=== PATIENT | female | born 1990 | race Caucasian/White ===

== ENCOUNTER 2021-09-08 08:50 | Emergency (ER) | payer SELFPAY ==
--- NOTE | 2021-09-08 09:50 | EDM.PDOC ---
ED HPI GENERAL MEDICAL PROBLEM - General Chief Complaint: General Stated Complaint: FELL ON TAIL BONE Time Seen by Provider: 09/08/21 09:37 Source of Information: Reports: Patient History Limitations: Reports: No Limitations - History of Present Illness INITIAL COMMENTS - FREE TEXT/NARRATIVE: HISTORY AND PHYSICAL: History of present illness: Patient is a 31-year-old female who presents to the emergency room with complaints of tailbone pain after a fall. She states over the weekend she was standing on a metal chair when it slipped out from under her and she landed directly on her tailbone. She states she is increasingly sore, having pain with bowel movements and difficulty when sitting in a chair. She denies hitting her head or having any loss of consciousness. She denies any other extremity involvement. Patient denies any fever, chills, headache, change in vision, syncope or near syncope. Denies any chest pain, shortness of breath or cough. Denies any abdominal pain, nausea, vomiting, diarrhea, constipation or dysuria. Has not noted any blood in urine or stool. Denies any urinary or fecal incontinence. Patient has been eating and drinking appropriately. No recent travel or sick contacts. Review of systems: As per history of present illness and below otherwise all systems reviewed and negative. Past medical history: As per history of present illness and as reviewed below otherwise noncontributory. Surgical history: As per history of present illness and as reviewed below otherwise noncontributory. Social history: See social history for further information Family history: As per history of present illness and as reviewed below otherwise noncontributory. Physical exam: General: Well developed and well nourished. Alert and orientated x 3. Nontoxic in appearance and in no acute distress. Vital signs are stable and have been reviewed by me. Nursing notes were reviewed. HEENT: Atraumatic, normocephalic, pupils equal and reactive bilaterally, negative for conjunctival pallor or scleral icterus, mucous membranes moist, TMs normal bilaterally, throat clear, neck supple, nontender, trachea midline. No drooling or trismus noted. No meningeal signs. No hot potato voice noted. Lungs: Clear to auscultation bilaterally. No wheezes, rales, or rhonchi. Chest nontender. Normal work of breathing, no accessory muscles used. Heart: S1S2, regular rate and rhythm without overt murmur, gallops, or rubs. No JVD. No peripheral edema Abdomen: Soft, nondistended, nontender. Normoactive bowel sounds. Negative for masses or costovertebral tenderness. Pelvis: Stable nontender. Skin: Yellow bruise to the left inner glutes near the tailbone. Remaining skin is intact, warm, dry. No lesions or rashes noted. C-spine/Back: No pinpoint vertebral tenderness upon palpation. No crepitus, step-offs or obvious deformities. Generalized tailbone pain into the glutes bilaterally. Patient is ambulatory into the emergency room without difficulty or deficit. Able to rock back on heels and walk on toes. Denies any urinary or fecal incontinence. Denies any numbness, tingling or saddle paresthesia. No concerns of serious infection, fracture or cord compression, or cauda equina syndrome. Deep tendon reflexes brisk bilaterally. Hematologic: No petechiae or purpra. Mucosa appropriate color and normal nail bed color and refill. Extremities: Moves all extremities per self without difficulty or deficits, negative for cords or calf pain. Neurovascular unremarkable. Neuro: Awake, alert, oriented. Cranial nerves II through XII unremarkable. Cerebellum unremarkable. Motor and sensory unremarkable throughout. Exam nonfocal. Psychiatric: Mood and affect are appropriate. Normal thought process. Answering questions appropriately. Please note that the patient was seen and evaluated during the 2019 SARS-CoV-2 novel coronavirus pandemic period. Community viral transmission is ongoing at time of this encounter and the emergency department is operating under pandemic response procedures. Medical Decision Making: Patient is a 31-year-old female who presents to the emergency room with complaints of tailbone pain after a fall over the weekend. She states it is becoming increasingly uncomfortable and she would like an x-ray. She declines wanting having a urine test, no concern. She does appear uncomfortable and prefers to stand, will give her p.o. 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 X-ray shows no acute osseous abnormality or displaced fracture is appreciated. She did get some relief with the medication. I have talked with the patient about today's findings, in addition to providing specific details for plan of care. Reassessment at the time of disposition demonstrates that the patient is in no acute distress. The patient is stable for discharge, counseling was provided and we discussed in great detail signs and symptoms that would prompt them to return to the Emergency Department. Medication, follow up and supportive care measures were reviewed and discussed. Voices understanding and is agreeable to plan of care. Denies any further questions or concerns at this time. Diagnostics: Sacrum x-ray Therapeutics: Torrance, Anaidfran Prescription: Torrance (#20), Zofran (#[id number]) Impression: Coccyx injury Plan: 1. You were evaluated today on an emergent basis. Your x-ray shows no fracture. You may have pain over the next 1 week as you are healing. Sit on soft surfaces or even a "doughnut" seat. May want to use Colace to soften your stools to prevent straining. 2. You can alternate Tylenol and ibuprofen as needed for pain and fever management. Torrance 03/01/2025, may use 1-2 tabs every 4 hours as needed for moderate to severe pain. This medication may cause drowsiness so do not take it while driving or needing to be functioning outside of the house. Zofran for nausea management. 3. We encourage you to follow up with your primary care provider in the next few days for re-evaluation and further care/management. 4. If your symptoms should worsen, new symptoms develop or any of the signs and symptoms we discussed should arise please return to the emergency room or call 911 (if needed). Definitive disposition and diagnosis as appropriate pending reevaluation and review of above. Hip Pain Score (Numeric/FACES): 8 - Related Data Allergies Allergy/AdvReac Type Severity Reaction Status Date / Time No Known Allergies Allergy Verified 09/08/21 10:19 Home Meds: Home Meds . [No Known Home Meds] 09/08/21 [History] ED ROS GENERAL - Review of Systems Review Of Systems: Comprehensive ROS is negative, except as noted in HPI. ED EXAM, GENERAL - Physical Exam Exam: See Below (See dictation) Course - Vital Signs Last Recorded V/S: Last Vital Signs Temp 97.5 F 09/08/21 09:45 Pulse 115 H 09/08/21 09:45 Resp 18 09/08/21 09:45 BP 103/69 09/08/21 09:45 Pulse Ox 98 09/08/21 09:45 - Orders/Labs/Meds Meds: Medications Discontinued Medications Generic Name Dose Route Start Last Admin Trade Name Freq PRN Reason Stop Dose Admin Hydrocodone Bitart/Acetaminophen 1 tab 09/08/21 09:56 09/08/21 10:09 Acetaminophen/Hydrocodone 325-5 Mg Tab PO 09/08/21 09:57 1 tab ONETIME ONE Administration Ondansetron HCl 4 mg 09/08/21 09:56 09/08/21 10:09 Ondansetron 4 Mg Tab.Dis PO 09/08/21 09:57 4 mg ONETIME ONE Administration Departure - Departure Time of Disposition: 10:56 Disposition: Home, Self-Care 01 Clinical Impression: Injury of coccyx Qualifiers: Encounter type: initial encounter Qualified Code(s): S39.92XA - Unspecified injury of lower back, initial encounter - Discharge Information Instructions: Tailbone Injury, [id number] Referrals: PCP,None [Primary Care Provider] - Forms: ED Department Discharge Additional Instructions: The following information is given to patients seen in the emergency department who are being discharged to home. This information is to outline your options for follow-up care. We provide all patients seen in our emergency department with a follow-up referral. The need for follow-up, as well as the timing and circumstances, are variable depending upon the specifics of your emergency department visit. If you don't have a primary care physician on staff, we will provide you with a referral. We always advise you to contact your personal physician following an emergency department visit to inform them of the circumstance of the visit and for follow-up with them and/or the need for any referrals to a consulting specialist. The emergency department will also refer you to a specialist when appropriate. This referral assures that you have the opportunity for follow-up care with a specialist. All of these measure are taken in an effort to provide you with optimal care, which includes your follow-up. Under all circumstances we always encourage you to contact your private physician who remains a resource for coordinating your care. When calling for follow-up care, please make the office aware that this follow-up is from your recent emergency room visit. If for any reason you are refused follow-up, please contact the [facility] Emergency Department at and asked to speak to the emergency department charge nurse. [facility] [address] [place], [place] [id number] [facility] [address] [place] [address] Thank you for choosing the [facility] emergency department in [place] for your medical needs today. It was a pleasure caring for you. Today you were seen in the emergency department for tailbone injury. 1. You were evaluated today on an emergent basis. Your x-ray shows no fracture. You may have pain over the next 1 week as you are healing. Sit on soft surfaces or even a "doughnut" seat. May want to use Colace to soften your stools to prevent straining. 2. You can alternate Tylenol and ibuprofen as needed for pain and fever management. Torrance 03/01/2025, may use 1-2 tabs every 4 hours as needed for moderate to severe pain. This medication may cause drowsiness so do not take it while driving or needing to be functioning outside of the house. Alexander for nausea management. 3. We encourage you to follow up with your primary care provider in the next few days for re-evaluation and further care/management. 4. If your symptoms should worsen, new symptoms develop or any of the signs and symptoms we discussed should arise please return to the emergency room or call 911 (if needed). Sepsis Event Note (ED) - Focused Exam Vital Signs: Vital Signs Temp Pulse Resp BP Pulse Ox 09/08/21 09:45 97.5 F 115 H 18 103/69 98
[2021-09-08] MEDS ORDERED: Acetaminophen/HYDROcodone 325-5 MG Tab PO ONE (09:56)
[2021-09-08] MEDS ORDERED: Ondansetron 4 MG Tab.DIS PO ONE (09:56)
--- NOTE | 2021-09-08 10:51 | CR ---
Indication: Fall on tailbone Comparison: None available. Technique: AP and lateral views sacrum and coccyx were obtained Findings: There is no displaced fracture or dislocation. The joint spaces are grossly preserved. The soft tissues are unremarkable. Impression: No acute osseous abnormality or displaced fracture is appreciated. Dictated by Haris Prado MD @ 09/08/2021 10:50:43 AM (Electronically Signed)
== END 2021-09-08 11:13 | disposition home or self-care (01) ==
LOC: MW.ED 08:50
DX: S30.0XXA Contusion of lower back and pelvis, initial encounter (principal); W07.XXXA Fall from chair, initial encounter
CPT/HCPCS: 72220; 99283; A9270